=== PATIENT | female | born 1980 | race Two or more races ===

== ENCOUNTER 2019-04-04 08:45 | Outpatient (CLI) | payer OTHER | END 2019-04-04 08:50 | disposition home or self-care (01) | LOC: LAB 08:45 | DX: E78.49 Other hyperlipidemia (principal); E55.9 Vitamin D deficiency, unspecified; Z00.00 Encounter for general adult medical examination without abnormal findings; I10 Essential (primary) hypertension; M25.50 Pain in unspecified joint; R42 Dizziness and giddiness ==

== ENCOUNTER → 2019-04-10 13:52 | Outpatient (CLI) | payer OTHER | END | disposition home or self-care (01) | LOC: LAB 13:52 | DX: J11.1 Influenza due to unidentified influenza virus with other respiratory manifestations (principal); A49.8 Other bacterial infections of unspecified site ==

== ENCOUNTER 2019-07-17 09:40 | Outpatient (CLI) | payer OTHER | END 2019-07-17 09:50 | disposition home or self-care (01) | LOC: LAB 09:40 | DX: R05 Cough (principal); J11.1 Influenza due to unidentified influenza virus with other respiratory manifestations; J06.9 Acute upper respiratory infection, unspecified ==

== ENCOUNTER 2019-09-11 12:24 | Outpatient (CLI) | payer OTHER | END 2019-09-11 12:29 | disposition home or self-care (01) | LOC: RAD 12:24 | DX: M79.632 Pain in left forearm (principal); M25.532 Pain in left wrist; M25.512 Pain in left shoulder ==

== ENCOUNTER 2019-12-07 13:42 | Outpatient (CLI) | payer OTHER ==
[~2019-12-07 13:42] MED LIST: DICLOFENAC POTA50 MG PO
== END 2019-12-07 15:00 | disposition home or self-care (01) ==
LOC: LAB 13:42
PROVIDERS: ATTEND General Practice
DX: J11.1 Influenza due to unidentified influenza virus with other respiratory manifestations (principal); Z20.828 Contact with and (suspected) exposure to other viral communicable diseases; R51 Headache; H92.03 Otalgia, bilateral

== ENCOUNTER 2020-02-25 11:41 | Outpatient (CLI) | payer OTHER ==
[~2020-02-25] VITALS: Ht 152.4 cm; Wt 90.7 kg
== END 2020-02-25 18:32 | disposition home or self-care (01) ==
LOC: OFIC 805 11:41
PROVIDERS: ATTEND Otolaryngology
DX: H92.11 Otorrhea, right ear (principal); H73.891 Other specified disorders of tympanic membrane, right ear; H61.21 Impacted cerumen, right ear

== ENCOUNTER 2020-03-17 13:00 | Outpatient (CLI) | payer OTHER | END 2020-03-17 13:43 | disposition home or self-care (01) | LOC: PPH VACUNA 13:00 | DX: Z23 Encounter for immunization (principal) ==

== ENCOUNTER → 2020-04-22 14:06 | Outpatient (CLI) | payer OTHER | END | disposition home or self-care (01) | LOC: LAB 14:06 | PROVIDERS: ATTEND Specialist | DX: J11.1 Influenza due to unidentified influenza virus with other respiratory manifestations (principal); B97.89 Other viral agents as the cause of diseases classified elsewhere; R50.9 Fever, unspecified ==

== ENCOUNTER 2020-07-05 13:56 | Emergency (ER) | payer OTHER ==
[~2020-07-05] VITALS: Ht 152.4 cm; Wt 90.7 kg
[2020-07-05] MEDS ORDERED: ENALAPRIL MALEA10 MG PO (14:26)
== END 2020-07-05 20:19 | disposition home or self-care (01) ==
LOC: ER 13:56
DX: U07.1 COVID-19 (principal)

== ENCOUNTER 2021-02-01 08:33 | Outpatient (CLI) | payer OTHER ==
[~2021-02-01 08:33] MED LIST changes: +ENALAPRIL MALEA10 MG PO
== END 2021-02-01 15:00 | disposition home or self-care (01) ==
LOC: LAB 08:33
PROVIDERS: ATTEND Emergency Medicine Pediatric Emergency Medicine
DX: Z03.818 Encounter for observation for suspected exposure to other biological agents ruled out (principal)

== ENCOUNTER 2021-02-08 08:26 | Outpatient (CLI) | payer OTHER | END 2021-02-08 15:00 | disposition home or self-care (01) | LOC: LAB 08:26 | PROVIDERS: ATTEND Emergency Medicine Pediatric Emergency Medicine | DX: Z03.818 Encounter for observation for suspected exposure to other biological agents ruled out (principal) ==

== ENCOUNTER 2021-02-10 08:00 | Outpatient (CLI) | payer OTHER | END 2021-02-10 08:30 | disposition home or self-care (01) | LOC: PPH VACUNA 08:00 | DX: Z23 Encounter for immunization (principal) ==

== ENCOUNTER 2021-02-23 09:43 | Outpatient (CLI) | payer OTHER | END 2021-02-23 19:00 | disposition home or self-care (01) | LOC: LAB 09:43 | DX: M35.81 Multisystem inflammatory syndrome (principal); Z12.82 Encounter for screening for malignant neoplasm of nervous system; Z11.52 Encounter for screening for COVID-19; B97.89 Other viral agents as the cause of diseases classified elsewhere; Z11.59 Encounter for screening for other viral diseases ==

== ENCOUNTER 2021-03-03 13:20 | Outpatient (CLI) | payer OTHER | END 2021-03-03 13:25 | disposition home or self-care (01) | LOC: PPH VACUNA 13:20 | PROVIDERS: ATTEND Emergency Medicine Pediatric Emergency Medicine | DX: Z23 Encounter for immunization (principal) ==

== ENCOUNTER 2021-04-14 08:53 | Outpatient (CLI) | payer OTHER | END 2021-04-14 09:02 | disposition home or self-care (01) | LOC: PPH VACUNA 08:53 | PROVIDERS: ATTEND Emergency Medicine Pediatric Emergency Medicine | DX: Z23 Encounter for immunization (principal) ==

== ENCOUNTER 2021-04-20 13:31 | Outpatient (CLI) | payer OTHER | END 2021-04-20 13:37 | disposition home or self-care (01) | LOC: MAMO-SONO 13:31 | PROVIDERS: ATTEND Radiology Diagnostic Radiology | DX: N64.89 Other specified disorders of breast (principal); Z12.39 Encounter for other screening for malignant neoplasm of breast ==

== ENCOUNTER 2021-07-03 10:55 | Outpatient (CLI) | payer OTHER | END 2021-07-03 11:51 | disposition home or self-care (01) | LOC: LAB 10:55 → EDBD 10:55 → LAB 11:51 | PROVIDERS: ATTEND Emergency Medicine Pediatric Emergency Medicine | DX: Z03.818 Encounter for observation for suspected exposure to other biological agents ruled out (principal) ==

== ENCOUNTER 2021-08-14 08:00 | Outpatient (CLI) | payer OTHER | END 2021-08-14 08:30 | disposition home or self-care (01) | LOC: PPH VACUNA 08:00 | PROVIDERS: ATTEND Emergency Medicine Pediatric Emergency Medicine | DX: Z23 Encounter for immunization (principal) ==

== ENCOUNTER 2021-11-15 08:12 | Outpatient (CLI) | payer OTHER | END 2021-11-15 08:20 | disposition home or self-care (01) | LOC: LAB 08:12 | PROVIDERS: ATTEND General Practice | DX: Z00.00 Encounter for general adult medical examination without abnormal findings (principal); E78.5 Hyperlipidemia, unspecified; E55.9 Vitamin D deficiency, unspecified; N39.0 Urinary tract infection, site not specified; R10.9 Unspecified abdominal pain ==

== ENCOUNTER 2022-02-21 03:25 | Outpatient (CLI) | payer OTHER | END 2022-02-21 03:30 | disposition home or self-care (01) | LOC: PPH VACUNA 03:25 | PROVIDERS: ATTEND Emergency Medicine Pediatric Emergency Medicine | DX: Z23 Encounter for immunization (principal) ==

== ENCOUNTER 2022-03-20 12:38 | Outpatient (CLI) | payer OTHER | END 2022-03-20 12:39 | disposition home or self-care (01) | LOC: LAB 12:38 | PROVIDERS: ATTEND General Practice | DX: R05.9 Cough, unspecified (principal); R50.9 Fever, unspecified; R06.02 Shortness of breath; Z20.822 Contact with and (suspected) exposure to COVID-19 ==

== ENCOUNTER 2022-05-20 15:34 | Emergency (ER) | payer OTHER ==
[~2022-05-20] VITALS: Ht 152.4 cm; Wt 99.8 kg
[2022-05-20] MEDS ORDERED: MOLNUPIRAVIR (200 MG PO (18:28)
== END 2022-05-20 18:32 | disposition home or self-care (01) ==
LOC: ER 15:34
DX: U07.1 COVID-19 (principal)

== ENCOUNTER → 2023-12-25 09:11 | Outpatient (CLI) | payer OTHER ==
[~2023-12-25 09:11] MED LIST changes: +MOLNUPIRAVIR (200 MG PO
== END | disposition home or self-care (01) ==
LOC: NUCLEAR 09:00
PROVIDERS: ATTEND Internal Medicine
DX: I11.9 Hypertensive heart disease without heart failure (principal); D50.9 Iron deficiency anemia, unspecified

== ENCOUNTER 2024-01-29 10:23 | Outpatient (CLI) | payer OTHER | END 2024-01-29 10:24 | disposition home or self-care (01) | LOC: LAB 10:23 | PROVIDERS: ATTEND Preventive Medicine Occupational Medicine | DX: J11.1 Influenza due to unidentified influenza virus with other respiratory manifestations (principal); Z20.828 Contact with and (suspected) exposure to other viral communicable diseases ==

== ENCOUNTER → 2024-02-25 | Outpatient (CLI) | payer OTHER | END | disposition home or self-care (01) | LOC: SONOGRAMA 08:16 | PROVIDERS: ATTEND Internal Medicine Hematology & Oncology | DX: D50.8 Other iron deficiency anemias (principal); Z80.3 Family history of malignant neoplasm of breast; Z80.1 Family history of malignant neoplasm of trachea, bronchus and lung; D68.32 Hemorrhagic disorder due to extrinsic circulating anticoagulants; N92.0 Excessive and frequent menstruation with regular cycle; D53.0 Protein deficiency anemia; I10 Essential (primary) hypertension ==

== ENCOUNTER 2024-03-25 05:25 | Day surgery (SDC) | payer OTHER ==
[2024-03-16 12:56] LABS: HEMATOCRIT 33.4 % (36.0-45.00); HEMOGLOBIN 10.4 g/dL (12.0-15.00); MEAN CELL VOLUME 73.3 fL (80.00-100.00); MEAN CORPUSCULAR HEMOGLOBIN 22.7 pg (27.00-32.0); PLATELET COUNT 420 K/uL (150-450); RED BLOOD COUNT 4.56 M/uL (4.00-6.00)
[2024-03-16 12:57] LABS: RED CELL DISTRIBUTION WIDTH 30.2 % (11.5-14.5)
[2024-03-16 13:04] LABS: INR 0.97; PARTIAL THROMBOPLASTIN TIME 29.1 SECONDS (22.0-34.0); PROTHROMBIN TIME 10.6 SECONDS (9.0-11.5)
[2024-03-16 14:03] LABS: ALBUMIN 3.8 gm/dL (3.4-5.0); BILIRUBIN TOTAL 0.21 mg/dL (0.3-1.2); CALCIUM 9.2 mg/dL (8.5-10.1); CREATININE SERUM 0.58 mg/dL (0.55-1.02); GFR 114.56; GLOBULINA 3.6 G/DL (2.4-3.5); POTASSIUM 4.69 mEq/L (3.5-5.1); TOTAL PROTEIN 7.4 gm/dL (6.4-8.2)
[2024-03-25] MEDS ORDERED: MORPHINE SULFATE 4 MG/ML VIAL IV ONE (11:40)
[2024-03-25] MEDS ORDERED: MORPHINE SULFATE 4 MG/ML VIAL IV PRN (12:30)
[2024-03-25] MEDS ORDERED: PROMETHAZINE HCL 50 MG/ML AMPUL IM ONE (12:30)
== END 2024-03-25 13:35 | disposition home or self-care (01) ==
LOC: CIR.AMB 05:25
PROVIDERS: ATTEND Obstetrics & Gynecology
DX: N84.0 Polyp of corpus uteri (principal); N93.8 Other specified abnormal uterine and vaginal bleeding; Z88.6 Allergy status to analgesic agent; I10 Essential (primary) hypertension

== ENCOUNTER → 2024-04-13 15:05 | Outpatient (CLI) | payer OTHER | END | disposition home or self-care (01) | LOC: LAB 15:05 | PROVIDERS: ATTEND Preventive Medicine Occupational Medicine | DX: J11.1 Influenza due to unidentified influenza virus with other respiratory manifestations (principal); Z20.828 Contact with and (suspected) exposure to other viral communicable diseases ==

== ENCOUNTER 2024-05-11 14:00 | Outpatient (CLI) | payer OTHER | END 2024-05-11 14:10 | disposition home or self-care (01) | LOC: PPH VACUNA 14:00 | PROVIDERS: ATTEND Emergency Medicine Pediatric Emergency Medicine | DX: Z23 Encounter for immunization (principal) ==

== ENCOUNTER 2024-05-15 08:07 | Outpatient (CLI) | payer OTHER ==
[2024-05-15 08:56] LABS: HEMOGLOBIN 12.1 g/dL (12.0-15.00); MEAN CELL VOLUME 78.6 fL (80.00-100.00); MEAN CORPUSCULAR HEMOGLOBIN 26.5 pg (27.00-32.0); MEAN CORPUSCULAR HGB CONC 33.7 g/dl (32.0-36.0); PLATELET COUNT 327 K/uL (150-450); RED BLOOD COUNT 4.58 M/uL (4.00-6.00)
[2024-05-15 08:57] LABS: RED CELL DISTRIBUTION WIDTH 21.5 % (11.5-14.5)
[2024-05-15 09:47] LABS: ALBUMIN 3.5 gm/dL (3.4-5.0); BILIRUBIN TOTAL 0.22 mg/dL (0.3-1.2); CREATININE SERUM 0.62 mg/dL (0.55-1.02); GFR 106.08; GLOBULINA 3.9 G/DL (2.4-3.5); POTASSIUM 4.04 mEq/L (3.5-5.1); T4 FREE 0.85 NG/ML (0.76-1.46); TOTAL PROTEIN 7.4 gm/dL (6.4-8.2); TSH 1.69 uIU/mL (0.358-3.74)
== END 2024-05-15 08:08 | disposition home or self-care (01) ==
LOC: LAB 08:07
PROVIDERS: ATTEND Internal Medicine Hematology & Oncology
DX: Z80.3 Family history of malignant neoplasm of breast (principal); Z80.1 Family history of malignant neoplasm of trachea, bronchus and lung; D50.8 Other iron deficiency anemias; D68.32 Hemorrhagic disorder due to extrinsic circulating anticoagulants; N92.0 Excessive and frequent menstruation with regular cycle; D53.0 Protein deficiency anemia; I10 Essential (primary) hypertension; R74.02 Elevation of levels of lactic acid dehydrogenase [LDH]; K76.89 Other specified diseases of liver; E06.3 Autoimmune thyroiditis; E03.8 Other specified hypothyroidism; D51.1 Vitamin B12 deficiency anemia due to selective vitamin B12 malabsorption with proteinuria; R97.0 Elevated carcinoembryonic antigen [CEA]

== ENCOUNTER → 2024-06-10 08:11 | Outpatient (CLI) | payer OTHER ==
[2024-06-10 08:55] LABS: URINE APPEARANCE Cloudy; URINE BILIRRUBIN Negative (NEGATIVE); URINE BLOOD Negative; URINE COLOR Yellow; URINE GLUCOSE Negative (NEGATIVE); URINE KETONE Negative (NEGATIVE); URINE LEUKOCYTE Negative; URINE NITRATE Negative; URINE PROTEIN Negative (NEGATIVE); URINE UROBILINOGEN 0.2 E.U./dl
[2024-06-10 08:56] LABS: URINE BACTERIA 231.2 uL (0.0-1933); URINE EPITHELIAL CELLS 81.6 uL (0.0-38.8); URINE RBC 5.1 uL (0.0-20.8); URINE WBC 3.1 uL (0.0-23.2)
[2024-06-10 08:59] LABS: HEMATOCRIT 35.4 % (36.0-45.00); HEMOGLOBIN 11.5 g/dL (12.0-15.00); MEAN CELL VOLUME 78.8 fL (80.00-100.00); MEAN CORPUSCULAR HEMOGLOBIN 25.6 pg (27.00-32.0); MEAN CORPUSCULAR HGB CONC 32.5 g/dl (32.0-36.0); PLATELET COUNT 383 K/uL (150-450); RED BLOOD COUNT 4.49 M/uL (4.00-6.00)
[2024-06-10 09:08] LABS: ERYTHROCYTE SEDIMENTATION RATE 40 mm/hr
[2024-06-10 10:08] LABS: ALBUMIN 3.6 gm/dL (3.4-5.0); BILIRUBIN TOTAL 0.18 mg/dL (0.3-1.2); CALCIUM 9.3 mg/dL (8.5-10.1); CHOL HDL RATIO 3.6 (0-5.0); CREATININE SERUM 0.66 mg/dL (0.55-1.02); GFR 98.21; POTASSIUM 4.26 mEq/L (3.5-5.1); TOTAL PROTEIN 7.6 gm/dL (6.4-8.2); TSH 2.01 uIU/mL (0.358-3.74)
[2024-06-10 10:10] LABS: C-REACTIVE PROTEIN 0.4 MG/DL (0.00-0.29)
== END | disposition home or self-care (01) ==
LOC: LAB 08:11
PROVIDERS: ATTEND Internal Medicine
DX: N94.5 Secondary dysmenorrhea (principal); I10 Essential (primary) hypertension; E55.9 Vitamin D deficiency, unspecified; Z13.1 Encounter for screening for diabetes mellitus; E78.9 Disorder of lipoprotein metabolism, unspecified; Z12.10 Encounter for screening for malignant neoplasm of intestinal tract, unspecified

== ENCOUNTER → 2024-07-08 10:29 | Outpatient (CLI) | payer OTHER ==
[2024-07-08 11:05] LABS: HEMATOCRIT 35.1 % (36.0-45.00); HEMOGLOBIN 11.4 g/dL (12.0-15.00); MEAN CELL VOLUME 77.7 fL (80.00-100.00); MEAN CORPUSCULAR HEMOGLOBIN 25.2 pg (27.00-32.0); MEAN CORPUSCULAR HGB CONC 32.5 g/dl (32.0-36.0); PLATELET COUNT 388 K/uL (150-450); RED BLOOD COUNT 4.51 M/uL (4.00-6.00); RED CELL DISTRIBUTION WIDTH 15.4 % (11.5-14.5)
== END | disposition home or self-care (01) ==
LOC: LAB 10:29
PROVIDERS: ATTEND Internal Medicine
DX: D64.9 Anemia, unspecified (principal)

== ENCOUNTER → 2024-08-27 07:59 | Outpatient (CLI) | payer OTHER ==
[2024-08-27 08:51] LABS: HEMATOCRIT 35.5 % (36.0-45.00); HEMOGLOBIN 11.3 g/dL (12.0-15.00); MEAN CELL VOLUME 77.3 fL (80.00-100.00); MEAN CORPUSCULAR HEMOGLOBIN 24.7 pg (27.00-32.0); PLATELET COUNT 367 K/uL (150-450); RED BLOOD COUNT 4.59 M/uL (4.00-6.00); RED CELL DISTRIBUTION WIDTH 17.1 % (11.5-14.5)
[2024-08-27 09:42] LABS: ALBUMIN 3.7 gm/dL (3.4-5.0); BILIRUBIN TOTAL 0.27 mg/dL (0.3-1.2); CALCIUM 9.3 mg/dL (8.5-10.1); CHOL HDL RATIO 3.6 (0-5.0); CREATININE SERUM 0.69 mg/dL (0.55-1.02); GFR 93.3; GLOBULINA 4.1 G/DL (2.4-3.5); POTASSIUM 4.37 mEq/L (3.5-5.1); TOTAL PROTEIN 7.8 gm/dL (6.4-8.2)
[2024-08-27 18:03] LABS: TSH 1.93 uIU/mL (0.358-3.74)
== END | disposition home or self-care (01) ==
LOC: LAB 07:59
PROVIDERS: ATTEND Internal Medicine
DX: I11.9 Hypertensive heart disease without heart failure (principal); E11.9 Type 2 diabetes mellitus without complications; E78.2 Mixed hyperlipidemia; E03.9 Hypothyroidism, unspecified

== ENCOUNTER 2024-09-16 07:44 | Outpatient (CLI) | payer OTHER ==
[2024-09-16 08:49] LABS: URINE APPEARANCE Clear; URINE BILIRRUBIN Negative (NEGATIVE); URINE BLOOD Negative; URINE COLOR Yellow; URINE GLUCOSE Negative (NEGATIVE); URINE KETONE Negative (NEGATIVE); URINE LEUKOCYTE Negative; URINE NITRATE Negative; URINE PROTEIN Negative (NEGATIVE); URINE UROBILINOGEN 0.2 E.U./dl
[2024-09-16 08:50] LABS: URINE EPITHELIAL CELLS 32.1 uL (0.0-38.8); URINE WBC 5.3 uL (0.0-23.2)
[2024-09-16 08:51] LABS: HEMATOCRIT 34.2 % (36.0-45.00); HEMOGLOBIN 10.7 g/dL (12.0-15.00); MEAN CELL VOLUME 76.3 fL (80.00-100.00); MEAN CORPUSCULAR HEMOGLOBIN 23.9 pg (27.00-32.0); MEAN CORPUSCULAR HGB CONC 31.4 g/dl (32.0-36.0); PLATELET COUNT 349 K/uL (150-450); RED BLOOD COUNT 4.49 M/uL (4.00-6.00); RED CELL DISTRIBUTION WIDTH 17.5 % (11.5-14.5)
[2024-09-16 08:53] LABS: ERYTHROCYTE SEDIMENTATION RATE 72 mm/hr
[2024-09-16 08:57] LABS: URINE CAST 0.88 uL (0.0-1.40); URINE RBC 1.4 uL (0.0-20.8)
[2024-09-16 09:44] LABS: ALBUMIN 3.5 gm/dL (3.4-5.0); ALKALINE PHOSPHATASE 80 U/L (50-136); ALT/SGPT 27 U/L (12-78); ANION GAP 9 (10.0-20.0); AST/SGOT 14 U/L (15-37); BILIRUBIN TOTAL 0.33 mg/dL (0.3-1.2); BLOOD UREA NITROGEN 14 mg/dL (7-18); BUN CREA RATIO 24 (7.0-25.0); CALCIUM 9.2 mg/dL (8.5-10.1); CARBON DIOXIDE 28 mEq/L (21-32); CHLORIDE 105 mmol/L (98-107); CHOL HDL RATIO 3.8 (0-5.0); CHOLESTEROL 227 mg/dL (0-200); CREATININE SERUM 0.59 mg/dL (0.55-1.02); GFR 111.78; GLOBULINA 3.9 G/DL (2.4-3.5); GLUCOSE FASTING 89 mg/dL (65-100); HDL 59 mg/dl (40-60); LDH 159 U/L (84-246); LDL 142 mg/dl (0-130); OSMOLALITY SERUM 276 MOSM/KG (275-295); POTASSIUM 4.23 mEq/L (3.5-5.1); SODIUM 138 mmol/L (136-145); TOTAL IRON BINDING CAPACITY 464 ug/dl (250-450); TOTAL PROTEIN 7.4 gm/dL (6.4-8.2); TRIGLYCERIDES 130 mg/dL (0-150); VLDL 26 (0-39)
[2024-09-16 09:46] LABS: C-REACTIVE PROTEIN < 0.29 MG/DL (0.00-0.29); FERRITIN 4.8 NG/ML (8-252)
[2024-09-16 16:55] LABS: FOLIC ACID 7.19 ng/ml (4.78-20); VITAMIN D3 25 HYDROXY 22.22 ng/ml (30-120)
[2024-09-17 09:07] LABS: CA 125 13.6 U/mL (0.0-38.1); CA 15-3 6.5 U/mL (0.0-25.0); CA 19-9 < 2 U/mL (0-35)
[2024-09-18 13:11] LABS: PARIETAL CELL ANTIBODIES 3.1 Units (0.0-20.0)
== END 2024-09-16 07:50 | disposition home or self-care (01) ==
LOC: LAB 07:44
PROVIDERS: ATTEND Internal Medicine Hematology & Oncology
DX: D50.8 Other iron deficiency anemias (principal); I10 Essential (primary) hypertension; R74.02 Elevation of levels of lactic acid dehydrogenase [LDH]; K76.89 Other specified diseases of liver; D51.1 Vitamin B12 deficiency anemia due to selective vitamin B12 malabsorption with proteinuria; C56.9 Malignant neoplasm of unspecified ovary; R97.0 Elevated carcinoembryonic antigen [CEA]; C50.919 Malignant neoplasm of unspecified site of unspecified female breast; Z80.3 Family history of malignant neoplasm of breast; Z80.1 Family history of malignant neoplasm of trachea, bronchus and lung; D68.32 Hemorrhagic disorder due to extrinsic circulating anticoagulants; N92.0 Excessive and frequent menstruation with regular cycle; D53.0 Protein deficiency anemia; E04.2 Nontoxic multinodular goiter; E04.0 Nontoxic diffuse goiter; E03.9 Hypothyroidism, unspecified; Z12.10 Encounter for screening for malignant neoplasm of intestinal tract, unspecified; E78.9 Disorder of lipoprotein metabolism, unspecified; Z13.1 Encounter for screening for diabetes mellitus; E55.9 Vitamin D deficiency, unspecified; N94.5 Secondary dysmenorrhea

== ENCOUNTER 2024-09-17 15:16 | Outpatient (CLI) | payer OTHER | END 2024-09-17 15:18 | disposition home or self-care (01) | LOC: SONOGRAMA 15:16 | PROVIDERS: ATTEND Pathology Anatomic Pathology & Clinical Pathology | DX: D34 Benign neoplasm of thyroid gland (principal); E04.2 Nontoxic multinodular goiter ==

== ENCOUNTER 2024-09-26 09:07 | Outpatient (CLI) | payer OTHER | END 2024-09-26 09:09 | disposition home or self-care (01) | LOC: LAB 09:07 | PROVIDERS: ATTEND General Practice | DX: Z11.3 Encounter for screening for infections with a predominantly sexual mode of transmission (principal); Z80.59 Family history of malignant neoplasm of other urinary tract organ ==

== ENCOUNTER → 2024-10-19 07:43 | Outpatient (CLI) | payer OTHER ==
[2024-10-19 08:42] LABS: URINE APPEARANCE Clear; URINE BILIRRUBIN Negative (NEGATIVE); URINE BLOOD Negative; URINE COLOR Yellow; URINE GLUCOSE Negative (NEGATIVE); URINE KETONE Trace (NEGATIVE); URINE LEUKOCYTE Negative; URINE NITRATE Negative; URINE PROTEIN Negative (NEGATIVE); URINE UROBILINOGEN 0.2 E.U./dl
[2024-10-19 08:46] LABS: URINE RBC 10.4 uL (0.0-20.8)
[2024-10-19 08:46] LABS: HEMATOCRIT 33.4 % (36.0-45.00); HEMOGLOBIN 10.4 g/dL (12.0-15.00); MEAN CELL VOLUME 74.9 fL (80.00-100.00); MEAN CORPUSCULAR HEMOGLOBIN 23.2 pg (27.00-32.0); PLATELET COUNT 350 K/uL (150-450); RED BLOOD COUNT 4.46 M/uL (4.00-6.00); RED CELL DISTRIBUTION WIDTH 16.4 % (11.5-14.5)
[2024-10-19 09:14] LABS: ERYTHROCYTE SEDIMENTATION RATE 43 mm/hr
[2024-10-19 09:36] LABS: ALBUMIN 3.3 gm/dL (3.4-5.0); BILIRUBIN TOTAL 0.18 mg/dL (0.3-1.2); CALCIUM 8.9 mg/dL (8.5-10.1); CHOL HDL RATIO 3.5 (0-5.0); CREATININE SERUM 0.64 mg/dL (0.55-1.02); GFR 101.76; GLOBULINA 3.8 G/DL (2.4-3.5); POTASSIUM 4.29 mEq/L (3.5-5.1); TOTAL PROTEIN 7.1 gm/dL (6.4-8.2); TSH 2.02 uIU/mL (0.358-3.74)
[2024-10-19 09:55] LABS: C-REACTIVE PROTEIN 0.73 MG/DL (0.00-0.29)
== END | disposition home or self-care (01) ==
LOC: LAB 07:43
PROVIDERS: ATTEND Internal Medicine
DX: I10 Essential (primary) hypertension (principal); E03.9 Hypothyroidism, unspecified; R19.5 Other fecal abnormalities; E78.9 Disorder of lipoprotein metabolism, unspecified; Z13.1 Encounter for screening for diabetes mellitus; E55.9 Vitamin D deficiency, unspecified; N94.5 Secondary dysmenorrhea

== ENCOUNTER 2024-12-17 07:42 | Outpatient (CLI) | payer OTHER ==
[2024-12-17 08:18] LABS: BASO % 1.1 % (0.1-1.2); EOS # 0.18 (0.04-0.54); EOS % 2.9 % (0.7-7.0); HEMATOCRIT 33.6 % (34.1-44.9); HEMOGLOBIN 10.1 g/dL (11.2-15.7); LYMPH # 2.55 (1.18-3.74); LYMPH % 41.2 % (19.3-53.1); MONO # 0.43 (0.24-0.82); MONO % 6.9 % (4.7-12.5); NEUT # 2.94 (1.56-6.13); NEUT % 47.6 % (34.0-71.1); PLATELET COUNT 342 K/uL (163-369); RED CELL DISTRIBUTION WIDTH 16.3 % (11.6-14.4)
[2024-12-17 08:32] LABS: ERYTHROCYTE SEDIMENTATION RATE 57 mm/hr (0-20)
[2024-12-17 09:19] LABS: PH,URINE 5.5 (5.0-8.0); URINE APPEARANCE Clear; URINE BILIRRUBIN Negative (NEGATIVE); URINE BLOOD Negative; URINE COLOR Yellow; URINE GLUCOSE Negative (NEGATIVE); URINE KETONE Negative (NEGATIVE); URINE LEUKOCYTE Negative; URINE NITRATE Negative; URINE PROTEIN Negative (NEGATIVE); URINE UROBILINOGEN 0.2 E.U./dl
[2024-12-17 09:24] LABS: URINE BACTERIA 17.1 uL (0.0-1933); URINE EPITHELIAL CELLS 15.6 uL (0.0-38.8); URINE RBC 8.6 uL (0.0-20.8)
[2024-12-17 09:25] LABS: ALBUMIN 3.3 gm/dL (3.4-5.0); BILIRUBIN TOTAL 0.24 mg/dL (0.3-1.2); CALCIUM 9.1 mg/dL (8.5-10.1); CREATININE SERUM 0.59 mg/dL (0.55-1.02); GFR 111.78; GLOBULINA 3.8 G/DL (2.4-3.5); POTASSIUM 4.25 mEq/L (3.5-5.1); TOTAL PROTEIN 7.1 gm/dL (6.4-8.2); TSH 1.75 uIU/mL (0.358-3.74)
[2024-12-17 09:26] LABS: URINE WBC 1.2 uL (0.0-23.2)
[2024-12-17 09:27] LABS: C-REACTIVE PROTEIN 0.31 MG/DL (0.00-0.29)
== END 2024-12-17 07:46 | disposition home or self-care (01) ==
LOC: LAB 07:42
PROVIDERS: ATTEND Internal Medicine
DX: N94.5 Secondary dysmenorrhea (principal); I10 Essential (primary) hypertension; E55.9 Vitamin D deficiency, unspecified; Z13.1 Encounter for screening for diabetes mellitus; E78.9 Disorder of lipoprotein metabolism, unspecified; Z12.10 Encounter for screening for malignant neoplasm of intestinal tract, unspecified; E03.9 Hypothyroidism, unspecified

== ENCOUNTER 2025-01-06 12:47 | Outpatient (CLI) | payer OTHER ==
[2025-01-06 13:53] LABS: COVID-19 AG POSITIVE (NEGATIVE)
== END 2025-01-06 12:48 | disposition home or self-care (01) ==
LOC: LAB 12:47
PROVIDERS: ATTEND Preventive Medicine Occupational Medicine
DX: J11.1 Influenza due to unidentified influenza virus with other respiratory manifestations (principal); Z20.828 Contact with and (suspected) exposure to other viral communicable diseases

== ENCOUNTER 2025-01-13 07:47 | Outpatient (CLI) | payer OTHER ==
[2025-01-13 08:22] LABS: BASO % 0.7 % (0.1-1.2); EOS # 0.17 (0.04-0.54); EOS % 2.9 % (0.7-7.0); LYMPH # 2.29 (1.18-3.74); LYMPH % 39.2 % (19.3-53.1); MEAN PLATELET VOLUME 9.40 fl (9.4-12.4); MONO # 0.39 (0.24-0.82); MONO % 6.7 % (4.7-12.5); NEUT # 2.94 (1.56-6.13); NEUT % 50.3 % (34.0-71.1); RED CELL DISTRIBUTION WIDTH 17.4 % (11.6-14.4)
[2025-01-13 08:50] LABS: URINE APPEARANCE Turbid; URINE BILIRRUBIN Small (NEGATIVE); URINE BLOOD Moderate; URINE COLOR Red; URINE GLUCOSE Negative (NEGATIVE); URINE KETONE Negative (NEGATIVE); URINE LEUKOCYTE Moderate; URINE NITRATE Positive; URINE UROBILINOGEN 0.2 E.U./dl
[2025-01-13 09:11] LABS: ALT/SGPT 45.0 U/L (12-78); AST/SGOT 19.0 U/L (15-37); BILIRUBIN TOTAL 0.25 mg/dL (0.3-1.2); BUN CREA RATIO 20.0 (7.0-25.0); CHOL HDL RATIO 4.2 (0-5.0); CREATININE SERUM 0.66 mg/dL (0.55-1.02); GFR 98.21; GLOBULINA 3.9 G/DL (2.4-3.5); GLUCOSE FASTING 92.0 mg/dL (65-100); HDL 55.0 mg/dl (40-60); LDH 160.0 U/L (84-246); LDL 139.0 mg/dl (0-130); OSMOLALITY SERUM 281.0 MOSM/KG (275-295); T4 TOTAL 8.47 UG/DL (4.8-13.9); TSH 1.89 uIU/mL (0.358-3.74); VLDL 38.0 (0-39)
[2025-01-13 09:29] LABS: URINE BACTERIA 1507.1 uL (0.0-1933); URINE EPITHELIAL CELLS 28.4 uL (0.0-38.8); URINE WBC 302.5 uL (0.0-23.2)
[2025-01-13 10:00] LABS: URINE PROTEIN 100 (NEGATIVE)
[2025-01-13 10:03] LABS: URINE CAST 0.00 uL (0.0-1.40); URINE RBC > 10558.9 uL (0.0-20.8)
[2025-01-13 11:26] LABS: T3 TOTAL 1.48 ng/ml (0.846-2.02); VITAMIN D3 25 HYDROXY 40.52 ng/ml (30-120)
[2025-01-14 09:08] LABS: INSULIN LEVELS 13.9 uIU/mL (2.6-24.9)
[2025-01-15 17:08] LABS: CALCITONIN < 2.0 pg/mL (0.0-5.0)
== END 2025-01-13 07:52 | disposition home or self-care (01) ==
LOC: LAB 07:47
PROVIDERS: ATTEND Internal Medicine
DX: E11.9 Type 2 diabetes mellitus without complications (principal); E34.9 Endocrine disorder, unspecified; E07.9 Disorder of thyroid, unspecified; E55.9 Vitamin D deficiency, unspecified; E53.9 Vitamin B deficiency, unspecified; E78.5 Hyperlipidemia, unspecified; N30.00 Acute cystitis without hematuria; I10 Essential (primary) hypertension; D64.9 Anemia, unspecified

== ENCOUNTER 2025-01-22 08:03 | Outpatient (CLI) | payer OTHER ==
[2025-01-22 09:13] LABS: BASO % 0.6 % (0.1-1.2); EOS # 0.19 (0.04-0.54); EOS % 2.4 % (0.7-7.0); LYMPH # 2.50 (1.18-3.74); LYMPH % 31.9 % (19.3-53.1); MEAN PLATELET VOLUME 9.70 fl (9.4-12.4); MONO # 0.47 (0.24-0.82); MONO % 6.0 % (4.7-12.5); NEUT # 4.60 (1.56-6.13); NEUT % 58.7 % (34.0-71.1); RED CELL DISTRIBUTION WIDTH 19.9 % (11.6-14.4)
[2025-01-22 10:35] LABS: % SATURACION 6.8 % (15-50); ALT/SGPT 40.0 U/L (12-78); AST/SGOT 15.0 U/L (15-37); BILIRUBIN TOTAL 0.3 mg/dL (0.3-1.2); BUN CREA RATIO 23.0 (7.0-25.0); CREATININE SERUM 0.62 mg/dL (0.55-1.02); FE 27.0 ug/dl (50-170); GFR 105.56; GLOBULINA 3.8 G/DL (2.4-3.5); GLUCOSE FASTING 72.0 mg/dL (65-100); LDH 143.0 U/L (84-246); OSMOLALITY SERUM 277.0 MOSM/KG (275-295); T4 FREE 1.22 NG/ML (0.76-1.46); TSH 1.3 uIU/mL (0.358-3.74)
[2025-01-22 12:36] LABS: FOLIC ACID 14.54 ng/ml (4.78-20)
[2025-01-23 09:08] LABS: ANTI THYROID PEROXIDASE 11 IU/mL (0-34); COMPLEMENT C3 189 mg/dL (82-167); COMPLEMENT C4 43 mg/dL (12-38); DNA AB DOUBLE STRABDED 1 IU/mL (0-9); TRANSFERIN 329 mg/dL (192-364)
== END 2025-01-22 08:05 | disposition home or self-care (01) ==
LOC: LAB 08:03
PROVIDERS: ATTEND Internal Medicine Hematology & Oncology
DX: D50.8 Other iron deficiency anemias (principal); D68.32 Hemorrhagic disorder due to extrinsic circulating anticoagulants; N92.0 Excessive and frequent menstruation with regular cycle; D53.0 Protein deficiency anemia; I10 Essential (primary) hypertension; E04.2 Nontoxic multinodular goiter; E04.0 Nontoxic diffuse goiter; Z80.3 Family history of malignant neoplasm of breast; R74.02 Elevation of levels of lactic acid dehydrogenase [LDH]; K76.89 Other specified diseases of liver; E03.8 Other specified hypothyroidism; E06.3 Autoimmune thyroiditis; M32.9 Systemic lupus erythematosus, unspecified; M06.9 Rheumatoid arthritis, unspecified

== ENCOUNTER 2025-04-29 13:28 | Outpatient (CLI) | payer OTHER | END 2025-04-29 13:38 | disposition home or self-care (01) | LOC: PPH VACUNA 13:28 | PROVIDERS: ATTEND Emergency Medicine Pediatric Emergency Medicine | DX: Z23 Encounter for immunization (principal) ==

== ENCOUNTER 2025-05-28 07:26 | Outpatient (CLI) | payer OTHER ==
[2025-05-28 08:58] LABS: BASO % 0.5 % (0.1-1.2); EOS # 0.20 (0.04-0.54); EOS % 3.2 % (0.7-7.0); LYMPH # 2.89 (1.18-3.74); LYMPH % 45.7 % (19.3-53.1); MEAN PLATELET VOLUME 10.10 fl (9.4-12.4); MONO # 0.39 (0.24-0.82); MONO % 6.2 % (4.7-12.5); NEUT # 2.79 (1.56-6.13); NEUT % 44.1 % (34.0-71.1); RED CELL DISTRIBUTION WIDTH 13.3 % (11.6-14.4)
[2025-05-28 09:46] LABS: % SATURACION 6.7 % (15-50); ALT/SGPT 33.0 U/L (12-78); AST/SGOT 18.0 U/L (15-37); BILIRUBIN TOTAL 0.26 mg/dL (0.3-1.2); BUN CREA RATIO 28.0 (7.0-25.0); CREATININE SERUM 0.6 mg/dL (0.55-1.02); FE 28.0 ug/dl (50-170); GFR 109.11; GLOBULINA 3.8 G/DL (2.4-3.5); GLUCOSE FASTING 88.0 mg/dL (65-100); LDH 158.0 U/L (84-246); OSMOLALITY SERUM 282.0 MOSM/KG (275-295); T4 FREE 1.0 NG/ML (0.76-1.46); TSH 2.07 uIU/mL (0.358-3.74)
[2025-05-28 10:11] LABS: FOLIC ACID 9.31 ng/ml (4.78-20); VITAMIN D3 25 HYDROXY 37.78 ng/ml (30-120)
== END 2025-05-28 07:30 | disposition home or self-care (01) ==
LOC: LAB 07:26
PROVIDERS: ATTEND Internal Medicine Hematology & Oncology
DX: I10 Essential (primary) hypertension (principal); R74.02 Elevation of levels of lactic acid dehydrogenase [LDH]; K76.89 Other specified diseases of liver; D51.3 Other dietary vitamin B12 deficiency anemia; D52.9 Folate deficiency anemia, unspecified; E03.8 Other specified hypothyroidism; E55.9 Vitamin D deficiency, unspecified; Z13.29 Encounter for screening for other suspected endocrine disorder; Z80.3 Family history of malignant neoplasm of breast; Z80.1 Family history of malignant neoplasm of trachea, bronchus and lung; D50.8 Other iron deficiency anemias; D68.32 Hemorrhagic disorder due to extrinsic circulating anticoagulants; N92.0 Excessive and frequent menstruation with regular cycle; D53.0 Protein deficiency anemia; E04.2 Nontoxic multinodular goiter; E04.0 Nontoxic diffuse goiter

== ENCOUNTER → 2025-06-03 | Outpatient (CLI) | payer OTHER | END | disposition home or self-care (01) | LOC: MAMO-SONO 11:20 | PROVIDERS: ATTEND Internal Medicine Hematology & Oncology | DX: N64.4 Mastodynia (principal); N63.0 Unspecified lump in unspecified breast; Z12.31 Encounter for screening mammogram for malignant neoplasm of breast; Z80.3 Family history of malignant neoplasm of breast; Z80.1 Family history of malignant neoplasm of trachea, bronchus and lung; D50.8 Other iron deficiency anemias; D68.32 Hemorrhagic disorder due to extrinsic circulating anticoagulants; N92.0 Excessive and frequent menstruation with regular cycle; D53.0 Protein deficiency anemia; I10 Essential (primary) hypertension; E04.2 Nontoxic multinodular goiter; E04.0 Nontoxic diffuse goiter ==

== ENCOUNTER 2025-06-11 07:43 | Outpatient (CLI) | payer OTHER ==
[2025-06-11 08:45] LABS: BASO % 0.8 % (0.1-1.2); EOS # 0.17 (0.04-0.54); EOS % 2.6 % (0.7-7.0); LYMPH # 2.72 (1.18-3.74); LYMPH % 41.5 % (19.3-53.1); MEAN PLATELET VOLUME 10.10 fl (9.4-12.4); MONO # 0.42 (0.24-0.82); MONO % 6.4 % (4.7-12.5); NEUT # 3.18 (1.56-6.13); NEUT % 48.5 % (34.0-71.1); RED CELL DISTRIBUTION WIDTH 13.5 % (11.6-14.4)
[2025-06-11 08:49] LABS: URINE APPEARANCE Clear; URINE BILIRRUBIN Negative (NEGATIVE); URINE BLOOD Trace; URINE COLOR Yellow; URINE GLUCOSE Negative (NEGATIVE); URINE LEUKOCYTE Negative; URINE NITRATE Negative; URINE PROTEIN Negative (NEGATIVE); URINE UROBILINOGEN 0.2 E.U./dl
[2025-06-11 08:52] LABS: URINE BACTERIA 52.6 uL (0.0-1933); URINE EPITHELIAL CELLS 31.8 uL (0.0-38.8); URINE RBC 11.6 uL (0.0-20.8); URINE WBC 2.6 uL (0.0-23.2)
[2025-06-11 08:53] LABS: ERYTHROCYTE SEDIMENTATION RATE 45 mm/hr (0-20)
[2025-06-11 09:00] LABS: URINE CAST 0.00 uL (0.0-1.40); URINE KETONE 40 (NEGATIVE)
[2025-06-11 09:19] LABS: ALT/SGPT 23.0 U/L (12-78); AST/SGOT 11.0 U/L (15-37); BILIRUBIN TOTAL 0.34 mg/dL (0.3-1.2); BUN CREA RATIO 20.0 (7.0-25.0); CHOL HDL RATIO 3.9 (0-5.0); CREATININE SERUM 0.65 mg/dL (0.55-1.02); GFR 99.48; GLOBULINA 3.9 G/DL (2.4-3.5); GLUCOSE FASTING 90.0 mg/dL (65-100); HDL 57.0 mg/dl (40-60); LDL 148.0 mg/dl (0-130); OSMOLALITY SERUM 275.0 MOSM/KG (275-295); TSH 1.94 uIU/mL (0.358-3.74); VLDL 19.0 (0-39)
== END 2025-06-11 07:49 | disposition home or self-care (01) ==
LOC: LAB 07:43
PROVIDERS: ATTEND Internal Medicine
DX: I10 Essential (primary) hypertension (principal); E03.9 Hypothyroidism, unspecified; Z12.10 Encounter for screening for malignant neoplasm of intestinal tract, unspecified; E78.9 Disorder of lipoprotein metabolism, unspecified; Z13.1 Encounter for screening for diabetes mellitus; E55.9 Vitamin D deficiency, unspecified; N94.5 Secondary dysmenorrhea